=== PATIENT | female | born 1995 | race Caucasian/White ===

== ENCOUNTER 2020-09-05 21:14 | Outpatient (REF) | payer SELFPAY ==
[2020-09-05 21:48] LABS: Internal QC Validated? YES +Cl - CLEAR BKGD; Pregnancy, Serum, hCG Quali. NEGATIVE Negative
== END 2020-09-06 00:15 | disposition home or self-care (01) ==
LOC: ED 21:14
DX: Z04.41 Encounter for examination and observation following alleged adult rape (principal)
CPT/HCPCS: 84703

== ENCOUNTER 2021-03-17 18:55 | Emergency (ER) | payer MEDICAID, SELFPAY ==
[2021-03-17 18:55] VITALS: BP 99/67; PULSE 82; RESP 16; TEMP 36.2; O2SAT 97; BMI 23.5
--- NOTE | 2021-03-17 19:29 | EX.ED.VIS.UR ---
HPI HPI - URI History of Present Illness Chief Complaint: Sore Throat Informant: patient Onset/Context/Timing Onset: Yesterday Context: Gradual Onset Timing: Continuous Current Severity: Mild Maximum Severity: Mild Associated Symptoms Associated Symptoms: Negative for Nasal Congestion, Headache, Sinus Pressure, Myalgias, Nausea, Vomiting, Diarrhea, Shortness of Breath, Chest Pain, Nonproductive cough, Hemoptysis and Productive Cough Narrative Narrative: 22-year-old female no seen past medical history. Has had 2-day history of sore throat. Chills no fever. Able to swallow. No cough or shortness of breath. Prior similar symptoms: Yes Recent Illness/Hospitalization: No ROS ROS ED ROS Narrative Sore throat. Constitutional Constitutional ED: Reports chills; Denies fever(s) Eyes Eyes: Denies change in vision ENT ENT ED: Reports sore throat; Denies ear pain Cardiovascular Cardiovascular: Denies chest pain Respiratory/Chest Respiratory/Chest: Denies dyspnea Gastrointestinal Gastrointestinal: Denies abdominal pain Genitourinary Genitourinary ED: Denies dysuria Musculoskeletal Musculoskeletal: Denies myalgias Integumentary Denies rash Neurologic Neurologic: Denies headache(s) Psychiatric Psychiatric: Denies depression Endocrine Endocrinology: Denies polyuria Hematologic/Lymphatic Hematologic/Lymphatic: Denies easy bruising Allergic/Immunologic Allergic/Immunologic ED: Denies urticaria PFSH PFSH Medical History no medical history no medical history Home Medications azithromycin [Zithromax] 250 mg PO DAILY 4 Days #4 tab 03/17/21 [Rx Last Taken Unknown] Allergy/AdvReac Type Severity Reaction Status Date / Time acetaminophen AdvReac Rash Verified 03/17/21 18:57 EXAM Physical Exam Narrative Exam Narrative: Well-appearing 14-year-old female. Vital signs stable afebrile. She does not look septic or toxic nor dehydrated. HEENT exam shows left tonsillar redness and exudate. Right normal. 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 No trouble swallowing or breathing. No drooling. TMs normal bilaterally. Moist extremities. Neck nontender no lymphadenopathy. Trachea midline. Lungs clear. Heart regular rhythm. Abdomen soft nontender. Moving all 4 extremities. No axillary nor cervical nor inguinal lymphadenopathy. Exam consistent with strep throat. Const Vital Signs: 03/17/21 18:55 Temperature 97.1 F L Temperature Source Temporal Pulse Rate 82 Respiratory Rate 16 Blood Pressure 99/67 Blood Pressure Mean 77 Pulse Ox 97 Oxygen Delivery Method Room Air Positive well nourished and well developed; Negative for obese, cachectic or contractures General Appearance ED: well developed and NAD; Negative for cachectic, contractures, cyanotic, diaphoretic or pallor Nutritional Appearance: Negative for cachectic or obese HEENT Reports TM's clear and moist mucous membranes normocephalic and atraumatic; Negative for scalp tenderness Face and Sinus: Negative for sinus tenderness External Ear: external ears normal External Auditory Canal: EAC's normal Tympanic Membrane ED: Yes TM's clear Eyes PERRL and EOMs intact bilaterally Neck no lymphadenopathy, supple, no meningeal signs and no JVD General: Negative for anterior neck swelling or lymphadenopathy Resp normal respiratory effort and clear to auscultation bilaterally Auscultation: Negative for rales, rhonchi or wheezes Cardio S1 normal heart sound, S2 normal heart sound and no murmurs Rate: regular rate Rhythm: regular rhythm GI non-tender, non-distended and no masses Inspection: Negative for abdominal distention Auscultation: normoactive bowel sounds; Negative for hyperactive bowel sounds or hypoactive bowel sounds Palpation: soft; Negative for tender or guarding Back/Spine no CVA tenderness and normal ROM General Back: Negative for CVA tenderness Cervical Spine: Negative for cervical spine tenderness Thoracic Spine / Upper Back: Negative for thoracic spinal tenderness Extremity normal to inspection; Negative for full ROM General Extremety ED: Negative for cyanosis or tenderness General Extremity: Negative for cyanosis Neuro oriented x3 Sensorium / Orientation: alert, oriented to person, oriented to place and oriented to time; Negative for orientation impaired, lethargic or stuporous Motor Exam: strength 5/5 throughout Psych mental status grossly normal Attitude: No agitated Mood & Affect: Negative for depressed or tearful Skin General Skin Exam: Negative for jaundice or pallor Lesions: no lesions Rashes: no rashes MDM MDM MDM Narrative Medical decision making narrative: History and exam consistent with strep throat. Patient has a penicillin allergy she states. She returned to Zithromax. 500 Heeren to 50 a day for 4 more days. Warm salt water gargling. Tylenol and Motrin. Follow-up if not improving or return if worse. Discharge Plan Triage Chief Complaint: Sore Throat ED Provider: Sravan Erickson Dx/Rx/DC Orders Clinical Impression: Acute streptococcal tonsillitis Instructions: ED Pharyngitis, Strep (Presumed) Prescriptions: New azithromycin [Zithromax] 250 mg tablet 250 mg PO DAILY 4 Days Qty: 4 RF: 0 Primary Care Provider: Care Physician,No Primary Referrals: Enoch Gerardo MD [STAFF PHYSICIAN] - 3-5 Days if not improving Care Physician,No Primary [Primary Care Provider] - Activity Restrictions/Additional Instructions: Plenty of fluids and rest. Alternate Tylenol and Motrin for pain and/or fever. Warm salt water gargling. Antibiotic daily for the next 4 days. Disposition Disposition: Home, Self Care
[2021-03-17] MEDS: Azithromycin 250 MG Tablet 500 MG PO (19:35)
== END 2021-03-17 19:42 | disposition home or self-care (01) ==
PROVIDERS: Emergency Provider Emergency Medicine
DX: J03.00 Acute streptococcal tonsillitis, unspecified (principal); Z88.0 Allergy status to penicillin
CPT/HCPCS: 99283